=== PATIENT | male | born 1990 | race Caucasian/White ===

== ENCOUNTER 2019-08-05 11:35 | Emergency (ER) | payer OTHER ==
--- NOTE | 2019-08-05 12:59 | ED Physician Documentation ---
History of Present Illness - Stated complaint Stated Complaint: LT WRIST LAC - Chief complaint Chief Complaint: Laceration - Additonal information Additional information: This is a 28-year-old male who presents with a laceration to his wrist. Patient was taking out the trash and there is a shard of glass in the trash which lacerated his wrist. He states that it was embedded shallowly into his wrist, and he removed it easily. He did not see anything break off in his wrist, and feels like he removed all of it. He had some oozing for over an hour so he presents here for evaluation. The bleeding is now stopped. He denies injury elsewhere. He denies any spurting of blood from the wound. Review of Systems Skin: reports: Laceration (s) Musculoskeletal: reports: Extremity pain PD PAST MEDICAL HISTORY - Past Medical History Past Medical History: No Cardiovascular: None Respiratory: None Neuro: None Endocrine/Autoimmune: None GI: None : None HEENT: None Psych: None Musculoskeletal: None Derm: None - Past Surgical History Past Surgical History: No - Allergies Allergies/Adverse Reactions: Allergies Allergy/AdvReac Type Severity Reaction Status Date / Time No Known Drug Allergies Allergy Verified 08/05/19 11:56 - Social History Does the pt smoke?: No Smoking Status: Never smoker Does the pt drink ETOH?: Yes Does the pt have substance abuse?: No - Immunizations Immunizations are current?: Yes - POLST Patient has POLST: No PD ED PE NORMAL - Vitals Vital signs reviewed: Yes - General General: Alert and oriented X 3, No acute distress - HEENT HEENT: Atraumatic - Cardiac Cardiac: Strong equal pulses - Respiratory Respiratory: No respiratory distress - Abdomen Abdomen: Soft - Derm Derm: Warm and dry - Extremities Extremities: Other (There is a 1 cm laceration to the volar surface of the Radial aspect of the left wrist. There is no active bleeding. This extended to the subcutaneous tissue there is no foreign body. Patient has intact flexion of all of his fingers, sensation is intact over the entire hand. Strength is normal, capillary refill is brisk over his digits.) - Neuro Neuro: Alert and oriented X 3 - Psych Psych: Normal mood, Normal affect Results - Vitals Vitals: Vital Signs - 24 hr 08/05/19 11:49 Temperature 36.7 C Heart Rate 78 Respiratory 14 Rate Blood Pressure 143/72 H O2 Saturation 100 Oxygen O2 Source Room air Procedures - Laceration (location) Upper extremity left Palmar Length in cm: 1 Wound type: Linear Neurovascular status: Sensory intact, Motor intact, Vascular intact Tendon involvement: Tendon intact Wound Preparation: Wound explored, To the base Skin layer closure: Dermabond Other: Patient tolerated well, No complications, Tetanus UTD PD MEDICAL DECISION MAKING - ED course Complexity details: considered differential (Laceration, neurovascular injury, Foreign body) ED course: On evaluation patient's wound is hemostatic. His limb is neurovascularly intact, no signs of tendon injury, or nerve injury. Wound was cleaned thoroughly and irrigated, it was explored to the base and there are no signs of foreign body. It was well approximated, so was repaired using skin glue and a Steri-Strip. I reviewed wound care and return precautions with the patient, and he was discharged home. Departure - Departure Disposition: 01 Home, Self Care Clinical Impression: Laceration Condition: Good Instructions: ED Laceration Ext Sutr Stap Tape Follow-Up: Your,PCP [Other] (As needed) Comments: You were seen today for a cut to your wrist. This is been repaired with a Steri-Strip and skin glue. You may run water over this area, but do not soak your hand until the wound is healed. I would avoid any strenuous movement of your wrist for at least 1 week. If you develop recurrent bleeding, or signs of an infection such as redness streaking up your arm, or fever, please return to the emergency department.
[2019-08-05 13:35] VITALS: BP 139/86
== END 2019-08-05 13:41 | disposition home or self-care (01) ==
LOC: ED 11:35
DX: S61.512A Laceration without foreign body of left wrist, initial encounter (principal); W25.XXXA Contact with sharp glass, initial encounter; Y93.E9 Activity, other interior property and clothing maintenance
CPT/HCPCS: 12001; 99281